=== PATIENT | female | born 1965 | race Caucasian/White ===

== ENCOUNTER 2018-12-15 10:30 | Inpatient (IN) | payer MEDICAID, OTHER ==
[~2018-12-15] VITALS: Ht 160 cm; Wt 58.6 kg
[2019-05-06 17:32] VITALS: Ht 160 cm; Wt 58.6 kg
[2019-05-10] VITALS (37 sets, daily range): BP systolic 85–126; BP diastolic 50–78; PULSE 58–95; RESP 11–26
[2019-05-10] MEDS ORDERED: BUPIVACAINE 0.5% (SDV) 30 ML, morphine SULFATE (PF) 8 MG, EPINEPHrine 0.3 MG, KETOROLAC... IRR SCH ×7 (05:00)
[2019-05-10] MEDS ORDERED: DEXAMETHASONE 1 MG TAB PO SCH (05:00)
[2019-05-10] MEDS ORDERED: CEFAZOLIN 2 GM/50 ML (PMX) 50 ML IVPB SCH (05:00)
[2019-05-10] MEDS ORDERED: GABAPENTIN 300 MG CAP PO SCH ×2 (05:00→21:00)
[2019-05-10] MEDS ORDERED: TRANEXAMIC ACID 1GM/100ML(PMX) 100 ML IVPB SCH (05:00)
[2019-05-10] MEDS ORDERED: POLYMYXIN/BACITRACIN 1L IRRIG ONE (06:52)
[2019-05-10] MEDS ORDERED: CA CHLORIDE (GM) 10% 10 ML INJ ONE (06:52)
[2019-05-10] MEDS ORDERED: TRANEXAMIC ACID 1GM/100ML(PMX) 100 ML ONE (06:52)
[2019-05-10] MEDS ORDERED: THROMBIN 5000 UNIT (RECOTHROM) VIAL ONE (06:52)
[2019-05-10] MEDS ORDERED: ONDANSETRON 4 MG INJ ONE (07:00)
[2019-05-10] MEDS ORDERED: HYDROmorphONE 0.5 MG/0.5 ML SYG IV PRN ×2 (07:00)
[2019-05-10] MEDS ORDERED: NALBUPHINE HCL (10 MG/1 ML) INJ IV PRN (07:00)
[2019-05-10] MEDS ORDERED: FENTAnyl 50 MCG/ML VIAL ONE (07:00)
[2019-05-10] MEDS ORDERED: TRIMETHOBENZAMIDE 100 MG/ML VIAL IM PRN ×2 (07:00)
[2019-05-10] MEDS ORDERED: EPHEDrine 25 MG/5 ML SYG IV PRN (07:00)
[2019-05-10] MEDS ORDERED: HYDROmorphONE 1 MG/5 ML IV SYRINGE IV PRN ×3 (07:00)
[2019-05-10] MEDS ORDERED: CEFAZOLIN 1 GM INJ ONE (07:00)
[2019-05-10] MEDS ORDERED: SOD CHLORIDE 0.9% 100 ML, TRANEXAMIC ACID 3,000 MG IRR SCH ×2 (07:00)
[2019-05-10] MEDS ORDERED: PROPOFOL 20 ML ONE (07:00)
[2019-05-10] MEDS ORDERED: ZOLPIDEM 5 MG TAB PO PRN ×2 (07:00→09:30)
[2019-05-10] MEDS ORDERED: IPRATROPIUM (NEB) 0.5 MG/2.5 ML AMP HHN PRN (07:00)
[2019-05-10] MEDS ORDERED: DEXAMETHASONE 4 MG/ML 5 ML INJ ONE (07:00)
[2019-05-10] MEDS ORDERED: NEOSTIGMINE 3 MG/3 ML SYRINGE ONE (07:00)
[2019-05-10] MEDS ORDERED: GLYCOPYRROLATE 0.4 MG INJ ONE (07:00)
[2019-05-10] MEDS ORDERED: DIPHENHYDRAMINE 50 MG INJ IV PRN ×3 (07:00→09:30)
[2019-05-10] MEDS ORDERED: MIDAZOLAM 1 MG/ML 2 ML INJ ONE (07:00)
[2019-05-10] MEDS ORDERED: ONDANSETRON 4 MG INJ IV PRN ×3 (07:00→09:30)
[2019-05-10] MEDS ORDERED: MEPERIDINE 25 MG INJ IV PRN (07:00)
[2019-05-10] MEDS ORDERED: ALBUTEROL 0.083% (NEB) 2.5 MG/3 ML AMP HHN PRN (07:00)
[2019-05-10] MEDS ORDERED: ROCURONIUM 50 MG INJ ONE (07:00)
[2019-05-10] MEDS ORDERED: FENTAnyl 50 MCG/ML VIAL IV PRN ×3 (07:00)
[2019-05-10] MEDS ORDERED: LABETALOL HCL 20MG INJ IV PRN (07:00)
[2019-05-10] MEDS ORDERED: hydrALAzine 20 MG INJ IV PRN (07:00)
[2019-05-10] MEDS ORDERED: MIDAZOLAM 1 MG/ML 2 ML INJ IV PRN (07:00)
[2019-05-10] MEDS ORDERED: NALOXONE (0.4 MG/ML) INJ IV PRN (07:00)
[2019-05-10] MEDS ORDERED: morphine SULFATE/PF (10 MG/10 ML) INJ ONE (07:05)
[2019-05-10] MEDS ORDERED: oxyCODONE 5 MG TAB PO PRN ×2 (09:30)
[2019-05-10] MEDS ORDERED: HYDROmorphONE 1 MG/ML SYG IV PRN (09:30)
[2019-05-10] MEDS ORDERED: MAGNESIUM HYDROXIDE 30ML CUP PO PRN (09:30)
[2019-05-10] MEDS ORDERED: NACL 0.9% 3 ML SYG IV SCH (09:30)
[2019-05-10] MEDS: CEFAZOLIN 1 GM/50 ML (PMX) 50 ML IVPB SCH ×2 (10:16→19:00)
[2019-05-10] MEDS: LACTATED RINGER'S 1,000 ML IV SCH ×2 (10:16→22:35)
[2019-05-10] MEDS: ACETAMINOPHEN 1000MG/100ML IV 100 ML IVPB SCH ×2 (10:23→18:20)
[2019-05-10] MEDS: DEXAMETHASONE 2 MG TAB PO SCH ×2 (13:08→18:22)
[2019-05-10] MEDS: SENNA/DOCUSATE NA (8.6MG/50MG) TAB PO SCH (20:32)
[2019-05-11] MEDS: DEXAMETHASONE 2 MG TAB PO SCH ×2 (00:34→05:44)
[2019-05-11] MEDS: CEFAZOLIN 1 GM/50 ML (PMX) 50 ML IVPB SCH (00:35)
[2019-05-11] MEDS: ACETAMINOPHEN 1000MG/100ML IV 100 ML IVPB SCH (02:44)
[2019-05-11 04:32] VITALS: BP 88/53; PULSE 68; RESP 18
[2019-05-11 05:55] VITALS: BP 108/57; PULSE 72
[2019-05-11] MEDS: LACTATED RINGER'S 1,000 ML IV SCH (06:01)
[2019-05-11 08:21] VITALS: BP 90/56; PULSE 58; RESP 18
[2019-05-11] MEDS ORDERED: ASPIRIN (EC) 325 MG TAB PO SCH (09:00)
[2019-05-11] MEDS: SENNA/DOCUSATE NA (8.6MG/50MG) TAB PO SCH (09:14)
[2019-05-11] MEDS: oxyCODONE 5 MG TAB PO PRN ×2 (13:09→17:37)
[2019-05-11 15:53] VITALS: BP 105/62; PULSE 86; RESP 18
[2019-05-11] MEDS ORDERED: ZOLPIDEM 5 MG TAB PO PRN (21:00)
[2019-05-12] MEDS ORDERED: MAGNESIUM HYDROXIDE 30ML CUP PO SCH (21:00)
== END 2019-05-11 19:32 | disposition home or self-care (01) | DRG 470 ==
LOC: REC 05-10 05:47 → MS1 05-10 11:45
PROVIDERS: ADMIT Orthopaedic Surgery; ATTEND Orthopaedic Surgery
PROC: 0SRB04Z Replacement of Left Hip Joint with Ceramic on Polyethylene Synthetic Substitute, Open Approach (ICD-10-PCS; principal; 2019-05-10 07:00)
DX: M13.852 Other specified arthritis, left hip (principal); Q65.89 Other specified congenital deformities of hip
CPT/HCPCS: 72170; 73530; 85025; 86999; 87086; 88304; 88311; 97116; 97162; 97530; C1713; C1776; J0131; J0171; J0690; J0735; J1100; J1200; J1885; J2250; J2274; J2405; J2710; J3010; J3370; J7120